=== PATIENT | male | born 1980 | race Caucasian/White ===

== ENCOUNTER → 2018-10-23 17:22 | Outpatient (CLI) | payer OTHER, SELFPAY | PROVIDERS: Visit Provider Nurse Practitioner Family | DX: L02.32 Furuncle of buttock (principal) | CPT/HCPCS: 87070; 87077; 87186; 87205 ==

== ENCOUNTER 2020-04-09 15:50 | Emergency (ER) | payer OTHER, SELFPAY ==
[2020-04-09 16:04] VITALS: BP 146/78; PULSE 74; RESP 17; TEMP 36.6; O2SAT 99; BMI 23.8
--- NOTE | 2020-04-09 16:07 | HMH.EDUTC ---
[facility] [place] Disposition Clinical Impression: Abscess of skin Qualifiers: Site of cutaneous abscess: extremity Site of cutaneous abscess of extremity: lower extremity Laterality: right Qualified Code(s): L02.415 - Cutaneous abscess of right lower limb Cellulitis Qualifiers: Site of cellulitis: extremity Site of cellulitis of extremity: lower extremity Laterality: right Qualified Code(s): L03.115 - Cellulitis of right lower limb Disposition: Home, Self-Care Condition on Discharge: Good Instructions: Cellulitis, Boil Additional Instructions: Keep the affected area clean and dry. Follow up with your regular doctor. Take the antibiotics as directed and apply the topical antibiotics as directed. Apply warm wet compresses to the affected area three or four times per day. GO TO THE ER FOR ANY WORSENING SYMPTOMS Prescriptions: Sulfamethoxazole/Trimethoprim [Bactrim DS tablet] 1 each PO BID 10 Days #20 tab Transmission Status: Received by [facility] Mupirocin [Bactroban 2% Ointment 22gm tube] 1 applicatio TP TID 7 Days #1 tube Transmission Status: Received by [facility] cephALEXin [Keflex 500mg Cap] 500 mg PO Q6H 10 Days #40 cap Transmission Status: Received by [facility] Referrals: Niko Jordan MD [Primary Care Provider] - Forms: Work/School Release Time of Disposition: 16:15 Medical Decision Making - Medical Records Medical records reviewed: No: I reviewed the patient's medical records. - Jerod Inquiry Pt receiving controlled substance: No Vital Signs: 04/09/20 16:04 04/09/20 16:18 Temperature 97.8 F 97.8 F Temperature Source Oral Pulse Rate 74 Pulse Rate [Right Brachial] 74 Respiratory Rate 17 17 Blood Pressure 146/78 H Blood Pressure [Right Arm] 146/78 H Blood Pressure Mean [Right Arm] 100 Blood Pressure Source [Right Arm] Automatic Cuff Blood Pressure Position [Right Arm] Sitting 02 Sat by Pulse Oximetry 99 Oxygen Delivery Method Room Air Orders (Tests/Meds): ORDERS Category Date Time Status Wound Culture and Gram Stain Stat Micro 04/09/20 16:10 Results [facility] [place] HPI - General Stated complaint: Spot on R leg Time Seen by Provider: 04/09/20 16:08 Mode of Arrival: Ambulatory Source of Information: Patient Limitations: No Limitations Description of Symptoms (Recalled from Triage Doc. by RN): PATIENT C/O POSSIBLE ABSCESS ON RIGHT THIGH X 1 WEEK HEENT Symptoms (Recalled from RN notes): No Resp Symptoms (Recalled from RN notes): No Skin Symptoms (Recalled from RN notes): Yes MS Symptoms (Recalled from RN notes): No Functional Status (Recalled from RN notes): WNL - History of Present Illness Provider Complaint: He reports that he has a swollen red area on the top of his right thigh. He denies any fever or chills. - Related Data Home Medications Medication Instructions Recorded Confirmed buprenorphine 8 mg-naloxone 2 mg 1 tab SUBLINGUAL QDAY 09/26/17 04/09/20 sublingual tablet Previous Rx's Medication Instructions Recorded Mupirocin [Bactroban 2% Ointment 1 applicatio TP TID 7 Days #1 tube 04/09/20 22gm tube] Sulfamethoxazole/Trimethoprim 1 each PO BID 10 Days #20 tab 04/09/20 [Bactrim DS tablet] cephALEXin [Keflex 500mg Cap] 500 mg PO Q6H 10 Days #40 cap 04/09/20 Allergies Allergy/AdvReac Type Severity Reaction Status Date / Time No Known Allergies Allergy Verified 11/27/19 10:41 - Worker's Comp Is this a Worker's Comp case?: No [facility] History - Hepatitis A Screen Drug use history?: No High risk sexual behaviors?: No History of sexually transmitted infection?: No Currently employed?: No Childcare worker?: No Do you have indoor plumbing?: Yes Do you have electricity?: Yes Attestation statement:: This patient has been screened for Hepatitis A risk factors. I have reviewed the patient's past medical history: Yes Comment: Hepatitis C Laterality Cases: Bilater
[2020-04-09 16:18] VITALS: BP 146/78; PULSE 74; RESP 17; TEMP 36.6; O2SAT 99
== END 2020-04-09 16:20 | disposition home or self-care (01) ==
PROVIDERS: Emergency Provider Nurse Practitioner Family; PCP Emergency Medicine
DX: L02.415 Cutaneous abscess of right lower limb (principal); F17.210 Nicotine dependence, cigarettes, uncomplicated
CPT/HCPCS: 87070; 87077; 87186; 87205; 99201

== ENCOUNTER 2020-07-20 13:26 | Emergency (ER) | payer OTHER, SELFPAY ==
[2020-07-20 13:45] VITALS: BP 122/76; PULSE 97; RESP 18; TEMP 36.6; O2SAT 98; BMI 23.7
--- NOTE | 2020-07-20 13:59 | HMH.EDUTC ---
[facility] [place] Impression: Viral syndrome, Exposure to COVID-19 virus Disposition: Home, Self-Care Condition on Discharge: Good Instructions: DI for Viral Syndrome, Preventing the Spread of Coronavirus Discharge Instructions Additional Instructions: Drink plenty of fluids. Take tylenol for pain or fever. Take the medications as directed. Follow up with your regular doctor. GO TO THE ER FOR ANY WORSENING SYMPTOMS Prescriptions: Ondansetron [Zofran 4mg ODT] 4 mg PO Q8HP PRN #12 tab.rapdis PRN Reason: Nausea Transmission Status: Received by [facility] Referrals: Niko Jordan MD [Primary Care Provider] - Forms: Work/School Release Time of Disposition: 14:01 Medical Decision Making - Medical Records Medical records reviewed: No: I reviewed the patient's medical records. - Jerod Inquiry Pt receiving controlled substance: No Vital Signs: 07/20/20 13:45 07/20/20 14:03 Temperature 97.8 F 97.8 F Temperature Source Oral Pulse Rate 97 H Pulse Rate [Right Brachial] 97 H Respiratory Rate 18 18 Blood Pressure 122/76 Blood Pressure [Right Arm] 122/76 Blood Pressure Mean [Right Arm] 91 Blood Pressure Source [Right Arm] Automatic Cuff Blood Pressure Position [Right Arm] Sitting 02 Sat by Pulse Oximetry 98 Oxygen Delivery Method Room Air [facility] [place] - General Stated complaint: covid exposure Time Seen by Provider: 07/20/20 13:59 Mode of Arrival: Ambulatory Source of Information: Patient Limitations: No Limitations Description of Symptoms (Recalled from Triage Doc. by RN): PATIENT REQUESTING COVID TEST; C/O NAUSEA, DIZZINESS, HEADACHE, AND DIARRHEA X 2 DAYS HEENT Symptoms (Recalled from RN notes): Yes Resp Symptoms (Recalled from RN notes): No Skin Symptoms (Recalled from RN notes): No MS Symptoms (Recalled from RN notes): No Functional Status (Recalled from RN notes): WNL - History of Present Illness Provider Complaint: He states that over the past 2 days he has had chilling, dizziness, diarrhea and feeling very bad. He denies documented fever. He thinks that he may have been exposed to covid at his work. - Related Data Previous Rx's Medication Instructions Recorded alprazolam 0.5 mg tablet 0.5 mg PO TID #90 tab 06/01/20 escitalopram oxalate 10 mg tablet 10 mg PO DAILY #90 tab 06/01/20 Ondansetron [Zofran 4mg ODT] 4 mg PO Q8HP PRN #12 tab.rapdis 07/20/20 Allergies Allergy/AdvReac Type Severity Reaction Status Date / Time No Known Allergies Allergy Verified 06/01/20 15:49 - Worker's Comp Is this a Worker's Comp case?: No [facility] History - Hepatitis A Screen Drug use history?: No High risk sexual behaviors?: No History of sexually transmitted infection?: No Currently employed?: No Childcare worker?: No Do you have indoor plumbing?: Yes Do you have electricity?: Yes Attestation statement:: This patient has been screened for Hepatitis A risk factors. I have reviewed the patient's past medical history: Yes Medical History: Reports:: Anxiety Comment: Hepatitis C Laterality Cases: Bilateral: Tonsillectomy Amputation: No Fractures: Yes - Social History Smoking Status: Current every day smoker Tobacco Type: cigarettes # Packs/Day (cigarettes): 1 Alcohol Intake: never Substance Use Type: former substance user, painkillers, opiates Occupational Status: other Housing: house Household Members: family - Psychiatric History Pschychiatric History:: Reports:: Anxiety Family Hx:: Non-contributory ROS Obtained: Yes All systems reviewed & no additional complaints - Constitutional Constitutional: Reports system reviewed and no additional complaints, except as docu - Eyes Eyes: Reports system reviewed and no additional complaints, except as docu - ENT Ears, Nose, Mouth, and Throat: Reports system reviewed and no additional complaints, except as docu - Cardiovascular Cardiovascular: Reports system reviewed and no addit
[2020-07-20 14:03] VITALS: BP 122/76; PULSE 97; RESP 18; TEMP 36.6; O2SAT 98
== END 2020-07-20 14:05 | disposition home or self-care (01) ==
PROVIDERS: Emergency Provider Nurse Practitioner Family; PCP Emergency Medicine
DX: Z20.828 Contact with and (suspected) exposure to other viral communicable diseases (principal); B34.9 Viral infection, unspecified
CPT/HCPCS: 99201; U0003

== ENCOUNTER → 2020-11-23 17:57 | Outpatient (CLI) | payer OTHER, SELFPAY ==
[2020-11-23 19:54] LABS: Amphetamine/Metha Screen,Urine Negative ng/ml (<1000)
[2020-11-23 19:55] LABS: Barbiturates Screen,Urine Negative ng/ml (<200); Benzodiazepines Screen,Urine Negative ng/ml (<200)
[2020-11-23 19:56] LABS: Cannabinoid Screen,Urine Positive ng/ml (<50)
[2020-11-23 19:57] LABS: Cocaine Screen,Urine Negative ng/ml (<300); Methadone Screen,Urine Negative ng/ml (<300)
[2020-11-23 19:58] LABS: Opiate Screen,Urine Negative ng/ml (<300); Phencyclidine Screen,Urine Negative ng/ml (<25)
== END ==
PROVIDERS: Visit Provider Emergency Medicine
DX: Z79.899 Other long term (current) drug therapy (principal)
CPT/HCPCS: 80305

== ENCOUNTER → 2021-03-30 08:00 | Outpatient (CLI) | payer OTHER, SELFPAY ==
[2021-03-31 09:12] LABS: Amphetamine/Metha Screen,Urine Negative ng/ml (<1000)
[2021-03-31 09:13] LABS: Barbiturates Screen,Urine Negative ng/ml (<200)
[2021-03-31 09:14] LABS: Cannabinoid Screen,Urine Negative ng/ml (<50)
[2021-03-31 09:17] LABS: Cocaine Screen,Urine Negative ng/ml (<300); Methadone Screen,Urine Negative ng/ml (<300)
[2021-03-31 09:18] LABS: Opiate Screen,Urine Negative ng/ml (<300)
[2021-03-31 09:20] LABS: Phencyclidine Screen,Urine Negative ng/ml (<25)
[2021-03-31 09:22] LABS: Benzodiazepines Screen,Urine Positive ng/ml (<200)
== END ==
PROVIDERS: Visit Provider Emergency Medicine
DX: Z79.899 Other long term (current) drug therapy (principal)
CPT/HCPCS: 80305

== ENCOUNTER → 2021-06-22 19:29 | Outpatient (CLI) | payer OTHER, SELFPAY ==
[2021-06-22 20:33] LABS: Amphetamine/Metha Screen,Urine Negative ng/ml (<1000); Barbiturates Screen,Urine Negative ng/ml (<200)
[2021-06-22 20:35] LABS: Benzodiazepines Screen,Urine Positive ng/ml (<200)
[2021-06-22 20:36] LABS: Cannabinoid Screen,Urine Negative ng/ml (<50); Cocaine Screen,Urine Negative ng/ml (<300)
[2021-06-22 20:37] LABS: Methadone Screen,Urine Negative ng/ml (<300)
[2021-06-22 20:38] LABS: Opiate Screen,Urine Negative ng/ml (<300); Phencyclidine Screen,Urine Negative ng/ml (<25)
== END ==
PROVIDERS: Visit Provider Emergency Medicine
DX: Z02.83 Encounter for blood-alcohol and blood-drug test (principal)
CPT/HCPCS: 80305

== ENCOUNTER 2021-06-27 15:37 | Emergency (ER) | payer OTHER, SELFPAY ==
[2021-06-27 15:49] VITALS: BMI 21.7
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
[2021-06-27 15:52] VITALS: BP 159/129; PULSE 114; RESP 18; TEMP 37; O2SAT 95; BMI 21.7
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
--- NOTE | 2021-06-27 17:41 | ECG_ITS ---
APPROVED REPORT Exam: Resting ECG HR:80 bpm ECG Measurements Heart Rate 80 AXES RI 178 P 74 QRSd 86 QRS 91 QT 360 T 69 QTc 415 Conclusion Normal sinus rhythm Rightward axis Borderline ECG Electronically signed by : Clint Cifuentes MD 06/28/2021 21:18:08
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
[2021-06-27 18:33] VITALS: BP 123/74; PULSE 78; RESP 18; TEMP 36.6; O2SAT 98
== END 2021-06-27 18:35 | disposition home or self-care (01) ==
PROVIDERS: Emergency Provider Student in an Organized Health Care Education/Training Program; PCP Emergency Medicine
DX: M25.511 Pain in right shoulder (principal); M54.6 Pain in thoracic spine; T07.XXXA Unspecified multiple injuries, initial encounter; W52.XXXA Crushed, pushed or stepped on by crowd or human stampede, initial encounter; Y93.02 Activity, running; Y92.89 Other specified places as the place of occurrence of the external cause; F17.210 Nicotine dependence, cigarettes, uncomplicated
CPT/HCPCS: 70140; 71045; 72070; 73030; 73120; 93005; 96372; 99283

== ENCOUNTER → 2021-09-28 14:03 | Outpatient (CLI) | payer OTHER, SELFPAY ==
[2021-09-28 15:35] LABS: Barbiturates Screen,Urine Negative ng/ml (<200)
[2021-09-28 15:36] LABS: Amphetamine/Metha Screen,Urine Negative ng/ml (<1000); Benzodiazepines Screen,Urine Positive ng/ml (<200)
[2021-09-28 15:37] LABS: Cannabinoid Screen,Urine Negative ng/ml (<50)
[2021-09-28 15:38] LABS: Cocaine Screen,Urine Negative ng/ml (<300); Methadone Screen,Urine Negative ng/ml (<300)
[2021-09-28 15:39] LABS: Opiate Screen,Urine Negative ng/ml (<300)
[2021-09-28 15:40] LABS: Phencyclidine Screen,Urine Negative ng/ml (<25)
== END ==
PROVIDERS: Visit Provider Emergency Medicine
DX: Z02.83 Encounter for blood-alcohol and blood-drug test (principal); Z79.899 Other long term (current) drug therapy
CPT/HCPCS: 80305

== ENCOUNTER → 2021-12-24 08:49 | Outpatient (CLI) | payer OTHER, SELFPAY ==
[2021-12-24 18:40] LABS: Amphetamine/Metha Screen,Urine Negative ng/ml (<1000); Barbiturates Screen,Urine Negative ng/ml (<200)
[2021-12-24 18:41] LABS: Benzodiazepines Screen,Urine Positive ng/ml (<200)
[2021-12-24 18:42] LABS: Cannabinoid Screen,Urine Negative ng/ml (<50); Cocaine Screen,Urine Negative ng/ml (<300)
[2021-12-24 18:43] LABS: Methadone Screen,Urine Negative ng/ml (<300)
[2021-12-24 18:44] LABS: Opiate Screen,Urine Negative ng/ml (<300); Phencyclidine Screen,Urine Negative ng/ml (<25)
== END ==
PROVIDERS: PCP Emergency Medicine; Visit Provider Emergency Medicine
DX: F41.9 Anxiety disorder, unspecified (principal)
CPT/HCPCS: 80305

== ENCOUNTER → 2022-03-21 15:12 | Outpatient (CLI) | payer OTHER, SELFPAY ==
[2022-03-21 14:57] LABS: Amphetamine/Metha Screen,Urine Negative ng/ml (<1000)
[2022-03-21 14:58] LABS: Barbiturates Screen,Urine Negative ng/ml (<200); Benzodiazepines Screen,Urine Positive ng/ml (<200)
[2022-03-21 14:59] LABS: Cannabinoid Screen,Urine Negative ng/ml (<50); Cocaine Screen,Urine Negative ng/ml (<300)
[2022-03-21 15:00] LABS: Methadone Screen,Urine Negative ng/ml (<300)
[2022-03-21 15:01] LABS: Opiate Screen,Urine Negative ng/ml (<300); Phencyclidine Screen,Urine Negative ng/ml (<25)
== END ==
PROVIDERS: Visit Provider Emergency Medicine
DX: Z79.899 Other long term (current) drug therapy (principal)
CPT/HCPCS: 80305

== ENCOUNTER → 2022-06-22 17:16 | Outpatient (CLI) | payer OTHER, SELFPAY ==
[2022-06-22 15:40] LABS: Amphetamine/Metha Screen,Urine Negative ng/ml (<1000)
[2022-06-22 15:42] LABS: Barbiturates Screen,Urine Negative ng/ml (<200)
[2022-06-22 15:43] LABS: Benzodiazepines Screen,Urine Positive ng/ml (<200)
[2022-06-22 15:44] LABS: Cannabinoid Screen,Urine Negative ng/ml (<50); Cocaine Screen,Urine Negative ng/ml (<300)
[2022-06-22 15:45] LABS: Methadone Screen,Urine Negative ng/ml (<300)
[2022-06-22 15:46] LABS: Opiate Screen,Urine Negative ng/ml (<300); Phencyclidine Screen,Urine Negative ng/ml (<25)
== END ==
PROVIDERS: PCP Emergency Medicine; Visit Provider Emergency Medicine
DX: Z79.899 Other long term (current) drug therapy (principal)
CPT/HCPCS: 80305

== ENCOUNTER → 2022-09-28 08:50 | Outpatient (CLI) | payer OTHER, SELFPAY ==
[2022-09-28 16:06] LABS: Alanine Aminotransferase 48 U/L (12-78); Albumin/Globulin Ratio 1.5 (1.1-1.8); Alkaline Phosphatase 127 U/L (38-126); Anion Gap 13.3 mEq/L (5-15); Aspartate Amino Transferase 42 U/L (17-59); Bilirubin,Total 0.4 mg/dl (0.2-1.3); Blood Urea Nitrogen 17 mg/dl (9-20); Calcium 9.5 mg/dl (8.4-10.2); Carbon Dioxide 28 mmol/L (22.0-30.0); Chloride 102 mmol/L (98-107); Chol/HDL Ratio 3.9 (1-3.5); Cholesterol 194 mg/dl (140-200); Estimated Glomerular Filt Rate 149 ml/min (>60); GFR (African American) 181 ML/MIN (>60); Globulin 3.3 g/dL (1.3-3.2); Glucose 111 mg/dl (74-100); HDL Cholesterol 50 mg/dl (40-60); Potassium 4.3 mmoL/L (3.5-5.1); Sodium 139 mmol/L (136-145); Total Protein,Serum 8.3 g/dl (6.3-8.2); Triglycerides 78 mg/dl (30-150); VLDL Cholesterol 16 mg/dL (0-40)
[2022-09-28 16:18] LABS: Direct LDL Cholesterol 113.77 mg/dL (100-129)
[2022-09-28 16:26] LABS: Barbiturates Screen,Urine Negative ng/ml (<200)
[2022-09-28 16:26] LABS: Free T4 (Free Thyroxine) 1.16 ng/dl (0.78-2.19)
[2022-09-28 16:27] LABS: Benzodiazepines Screen,Urine Positive ng/ml (<200)
[2022-09-28 16:28] LABS: Cannabinoid Screen,Urine Negative ng/ml (<50)
[2022-09-28 16:30] LABS: Cocaine Screen,Urine Negative ng/ml (<300)
[2022-09-28 16:31] LABS: Methadone Screen,Urine Negative ng/ml (<300)
[2022-09-28 16:32] LABS: Phencyclidine Screen,Urine Negative ng/ml (<25)
[2022-09-28 16:41] LABS: Thyroid Stimulating Hormone 2.07 uIU/mL (0.465-4.68)
[2022-09-28 16:44] LABS: Amphetamine/Metha Screen,Urine Negative ng/ml (<1000)
[2022-09-28 16:45] LABS: Opiate Screen,Urine Negative ng/ml (<300)
== END ==
PROVIDERS: PCP Emergency Medicine; Visit Provider Emergency Medicine
DX: Z79.899 Other long term (current) drug therapy (principal); B19.20 Unspecified viral hepatitis C without hepatic coma; E55.9 Vitamin D deficiency, unspecified; E66.3 Overweight
CPT/HCPCS: 80053; 80061; 80305; 82306; 84439; 84443

== ENCOUNTER 2023-03-13 17:37 | Emergency (ER) | payer SELFPAY ==
[2023-03-13 17:38] VITALS: BP 151/81; PULSE 85; RESP 16; TEMP 36.9; O2SAT 99; BMI 23.1
--- NOTE | 2023-03-13 17:54 | HMH.EDGENADL ---
Discharge Plan Disposition Patient Disposition: Home, Self-Care Prescriptions Prescriptions: New promethazine 25 mg tablet 25 mg PO TID PRN (Reason: nausea and vomiting) Qty: 30 0RF No Action alprazolam 0.5 mg tablet 0.5 mg PO QID Qty: 120 2RF escitalopram oxalate [Lexapro] 10 mg tablet 10 mg PO DAILY Qty: 90 0RF alprazolam [Xanax] 1 mg tablet 1 mg PO QID Qty: 20 0RF trazodone 50 mg tablet 50 mg PO DAILY Qty: 30 0RF Referrals Follow up/Referrals: Niko Jordan MD [Primary Care Provider] - See instructions Activity Restrictions/Add. Instructions Additional Instructions/Restrictions: Return for worsening abdominal pain vomiting or any other concerns within the next 8 hours Clinical Impressions Clinical Impression: Acute opioid withdrawal Instructions Patient Instructions: DI for Diarrhea and Traveler's Diarrhea -- Adult, DI for Diarrhea and Traveler's Diarrhea -- Child, DI for Nausea -- Adult, DI for Nausea -- Child Discharge ED Provider: Cristian Curry General Adult HPI General Chief complaint: Nausea/Vomiting/Diarrhea Stated complaint: poss withdraw Time Seen by Provider: 03/13/23 17:40 Mode of Arrival: Wheelchair Limitations: No Limitations Description of Symptoms (Recalled from ER Triage Doc. by RN): PT BROUGHT IN BY S.O. PT REPORTS HE IS GOING THROUGH WITHDRAWL HAS NOT USED HEROIN IN ABOUT 4-5 DAYS. 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 He says he last used about 4 to 5 days ago. He has muscle aches vomiting and diarrhea. He went home and his brought him in because he was feeling so bad. Denies chest pain difficulty breathing. He has not had any seizures. Related Data Previous Rx's Medication Instructions Recorded escitalopram oxalate 10 mg tablet 10 mg PO DAILY #90 tabs 06/22/22 (Lexapro) alprazolam 0.5 mg tablet 0.5 mg PO QID #120 tabs 01/06/23 alprazolam 1 mg tablet (Xanax) 1 mg PO QID #20 tabs 03/03/23 trazodone 50 mg tablet 50 mg PO DAILY #30 tabs 03/03/23 promethazine 25 mg tablet 25 mg PO TID PRN nausea and 03/13/23 vomiting #30 tabs Allergies Allergy/AdvReac Type Severity Reaction Status Date / Time No Known Allergies Allergy Verified 03/03/23 15:37 [facility] Disclaimer: The information contained in this section may have been updated after the patient was seen, as this information can be updated by other users. Social History Smoking Status: Current every day smoker tobacco type: cigarettes packs per day: 1 alcohol intake: never substance use type: former substance user, opiates and painkillers current occupational status: other Travel in the last 8 weeks: None household members: family housing: house ROS Obtained: Yes All systems reviewed & no additional complaints except as documented Constitutional Constitutional: Denies frequent falls Eyes Eyes: Denies diplopia ENT Ears, Nose, Mouth, and Throat: Denies dizziness Cardiovascular Cardiovascular: Denies diaphoresis and Denies dyspnea Respiratory Respiratory: Denies dyspnea and Denies wheezing Gastrointestinal Gastrointestingal: Denies coffee ground emesis Genitourinary Male Genitourinary: Denies flank pain Musculoskeletal Musculoskeletal: Denies arthralgias Integumentary/Breasts Skin/Breast: Denies rash Neurologic Neurologic: Denies dizziness and Denies frequent falls Endocrine Endocrine: Denies flushing Hematologic/Lymphatic Henatologic/Lymphatic: Denies easy bruising Allergic/Immunologic Allergic/Immunologic: Denies wheezing Physical Exam General General appearance: alert and in no apparent distress Eye Eye exam: Present PERRL and EOMI ENT ENT exam: Present normal exam and normal oropharynx Neck Neck exam: Present normal inspection Chest Chest inspection: Present symmetric chest wall rise Re
[2023-03-13 18:08] VITALS: PULSE 76; O2SAT 97
[2023-03-13 18:08] LABS: Basophils % 0.3 % (0.1-2.0); Eosinophils # 0.1 K/mm3 (0.0-0.4); Eosinophils % 1.1 % (0.1-12.0); Hematocrit 45.1 % (42.0-52.0); Hemoglobin 14.7 g/dL (14.1-18.0); Lymphocytes # 1.6 K/mm3 (0.7-4.5); Lymphocytes % 12.5 % (10-50); Mean Corpuscular HGB Conc 32.7 g/dL (31.8-35.4); Mean Corpuscular Hemoglobin 29.5 pg (27.0-31.2); Mean Corpuscular Volume 90.2 fl (80-94); Mean Platelet Volume 8.7 fl (7.4-10.4); Monocytes # 0.6 K/mm3 (0.1-1.0); Monocytes % 4.5 % (1.7-9.3); Neutrophils # 10.2 K/mm3 (1.8-7.8); Neutrophils % 81.7 % (37.0-80.0); Platelet Count 427 K/mm3 (142-424); Red Cell Distribution Width 14.6 % (11.5-17.5); White Blood Count 12.5 K/mm3 (4.8-10.8)
[2023-03-13 18:56] LABS: Chloride 98 mmol/L (98-107); Sodium 140 mmol/L (136-145)
[2023-03-13 18:59] LABS: Alanine Aminotransferase 37 U/L (12-78); Albumin Level 4.8 g/dl (3.5-5.0); Alkaline Phosphatase 133 U/L (38-126); Aspartate Amino Transferase 44 U/L (17-59); Bilirubin,Total 0.6 mg/dl (0.2-1.3); Blood Urea Nitrogen 14 mg/dl (9-20); Calcium 9.8 mg/dl (8.4-10.2); Carbon Dioxide 31 mmol/L (22.0-30.0); Creatinine Clearance Estimated 189 mL/min (50-200); Estimated Glomerular Filt Rate 149 ml/min (>60); GFR (African American) 181 ML/MIN (>60); Globulin 4.7 g/dL (1.3-3.2); Glucose 118 mg/dl (74-100); Lipase 77 U/L (23-300); Magnesium 1.9 mg/dl (1.6-2.3); Total Protein,Serum 9.5 g/dl (6.3-8.2)
[2023-03-13 19:00] VITALS: PULSE 81; O2SAT 97
[2023-03-13 19:12] LABS: Troponin I < 0.01 ng/ml (0.00-0.034)
--- NOTE | 2023-03-13 19:39 | PC.NURSE ---
Pt repositioned in bed for comfort. No other needs voiced at this time.
[2023-03-13 20:29] VITALS: BP 147/72; PULSE 72; RESP 16; TEMP 36.9; O2SAT 97
== END 2023-03-13 20:31 | disposition home or self-care (01) ==
PROVIDERS: Emergency Provider Emergency Medicine; PCP Emergency Medicine
DX: F11.23 Opioid dependence with withdrawal (principal); R11.2 Nausea with vomiting, unspecified; R19.7 Diarrhea, unspecified; F17.210 Nicotine dependence, cigarettes, uncomplicated
CPT/HCPCS: 80053; 83690; 83735; 84484; 85025; 96361; 96374; 96375; 99284; 99285; J2405; J3475

== ENCOUNTER 2023-03-18 14:59 | Observation (INO) | payer SELFPAY ==
[2023-03-18] VITALS (9 sets, daily range): BP systolic 123–141; BP diastolic 68–112; PULSE 73–105; RESP 15–24; TEMP 36.6–37.1; O2SAT 96–100; BMI 23.1; BMI 22.4
--- NOTE | 2023-03-18 15:11 | HMH.EDGENADL ---
Discharge Plan Disposition Patient Disposition: Home, Self-Care Chief Complaint: Altered Mental Status Prescriptions Prescriptions: No Action alprazolam 0.5 mg tablet 0.5 mg PO QID Qty: 120 2RF escitalopram oxalate [Lexapro] 10 mg tablet 10 mg PO DAILY Qty: 90 0RF alprazolam [Xanax] 1 mg tablet 1 mg PO QID Qty: 20 0RF trazodone 50 mg tablet 50 mg PO DAILY Qty: 30 0RF ketorolac 10 mg tablet 10 mg PO Q6H 3 Days Qty: 12 0RF Rx Instructions: patient had toradol shot in ER on 03/13/23 hydroxyzine pamoate [Vistaril] 50 mg capsule 50 mg PO Q8H 3 Days Qty: 9 0RF promethazine 25 mg tablet 25 mg PO TID PRN (Reason: nausea and vomiting) Qty: 30 0RF Referrals Follow up/Referrals: Niko Jordan MD [Primary Care Provider] - See instructions Clinical Impressions Clinical Impression: Benzodiazepine withdrawal, Hypophosphatemia, Hypokalemia Instructions Patient Instructions: DI for Altered Mental Status Discharge ED Provider: Carlotta Dorsey General Adult HPI General Chief complaint: Altered Mental Status Stated complaint: pain Time Seen by Provider: 03/18/23 15:01 History of Present Illness HPI narrative: Patient is a 42-year-old male presenting today with withdrawal symptoms. He has a history of opioid abuse and has used heroin daily for a long time but most recently stopped 9 days ago. His sister and his girlfriend state that he has not been by himself at any point during this last 9 days. He had some nausea vomiting a few days ago had decreased intake of his Xanax which he takes daily as well. Of the last 24 hours he has had altered mental status with some tremors and decreased level of alertness. Denies any alcohol use or any other drug use. No fevers or chills no injuries no other ingestions. Related Data Previous Rx's Medication Instructions Recorded escitalopram oxalate 10 mg tablet 10 mg PO DAILY #90 tabs 06/22/22 (Lexapro) alprazolam 0.5 mg tablet 0.5 mg PO QID #120 tabs 01/06/23 alprazolam 1 mg tablet (Xanax) 1 mg PO QID #20 tabs 03/03/23 trazodone 50 mg tablet 50 mg PO DAILY #30 tabs 03/03/23 promethazine 25 mg tablet 25 mg PO TID PRN nausea and 03/13/23 vomiting #30 tabs ketorolac 10 mg tablet 10 mg PO Q6H 3 days #12 tabs 03/14/23 hydroxyzine pamoate 50 mg capsule 50 mg PO Q8H 3 days #9 caps 03/16/23 (Vistaril) Allergies Allergy/AdvReac Type Severity Reaction Status Date / Time No Known Allergies Allergy Verified 03/03/23 15:37 [facility] Disclaimer: The information contained in this section may have been updated after the patient was seen, as this information can be updated by other users. Social History Smoking Status: Current every day smoker tobacco type: cigarettes packs per day: 1 alcohol intake: never substance use type: former substance user, opiates and painkillers current occupational status: other Travel in the last 8 weeks: None household members: family housing: house ROS Obtained: Yes All systems reviewed & no additional complaints except as documented Physical Exam General General appearance: alert and other (Answer questions appropriately with decreased level of alertness) Respiratory Respiratory exam: Present normal lung sounds bilaterally Cardiovascular Cardiovascular exam: Present regular rate; Absent tachycardia Neurological Exam Neurological exam: Present alert and oriented X3 Medical Decision Making Jerod Inquiry Pt receiving controlled substance: No Vital Signs: 03/18/23 15:00 Temperature 97.8 F Temperature Source Oral Pulse Rate [Right] 105 H Respiratory Rate 24 Blood Pressure [Right Arm] 141/112 H Blood Pressure Mean [Right Arm] 121 Blood Pressure Source [Right Arm] Automatic Cuff Blood Pressure Position [Right Arm] Sitting 02 Sat by Pulse Oximetry 100 Oxygen Delivery Method Room Air Lab Data Lab results reviewed: Y
[2023-03-18 15:29] LABS: VBG Base Excess 3.3 mmol/L (-2.4-2.3); VBG HCO3 24.4 mmol/L (23-30); VBG Oxygen Saturation 65.1 % (50-70); VBG PO2 26.5 mmol/L (28-40); VBG Total CO2 25.1 mmol/L (23-27)
[2023-03-18 15:29] LABS: Basophils # 0.1 K/mm3 (0-0.2); Basophils % 0.5 % (0.1-2.0); Eosinophils # 0.4 K/mm3 (0.0-0.4); Eosinophils % 2.1 % (0.1-12.0); Hematocrit 44.6 % (42.0-52.0); Hemoglobin 14.9 g/dL (14.1-18.0); Lymphocytes % 21.9 % (10-50); Mean Corpuscular HGB Conc 33.4 g/dL (31.8-35.4); Mean Corpuscular Hemoglobin 29.3 pg (27.0-31.2); Mean Corpuscular Volume 87.8 fl (80-94); Mean Platelet Volume 8.3 fl (7.4-10.4); Monocytes # 0.8 K/mm3 (0.1-1.0); Monocytes % 4.5 % (1.7-9.3); Neutrophils % 70.9 % (37.0-80.0); Platelet Count 436 K/mm3 (142-424); Red Blood Count 5.08 M/mm3 (4.60-6.20); Red Cell Distribution Width 14.5 % (11.5-17.5); White Blood Count 18.4 K/mm3 (4.8-10.8)
[2023-03-18 15:33] LABS: MANUAL DIFFERENTIAL MANUAL DIFFERENTIAL (MANUAL DIFF)
[2023-03-18 15:33] LABS: VBG PCO2 23.8 mmol/L (35-51); VBG PH 7.63 mmol/L (7.31-7.41)
[2023-03-18 15:36] LABS: Alanine Aminotransferase 54 U/L (12-78); Albumin Level 4.4 g/dl (3.5-5.0); Albumin/Globulin Ratio 1.3 (1.1-1.8); Alkaline Phosphatase 116 U/L (38-126); Anion Gap 15.6 mEq/L (5-15); Aspartate Amino Transferase 38 U/L (17-59); Bilirubin,Total 0.6 mg/dl (0.2-1.3); Blood Urea Nitrogen 20 mg/dl (9-20); Calcium 9.6 mg/dl (8.4-10.2); Carbon Dioxide 26 mmol/L (22.0-30.0); Chloride 98 mmol/L (98-107); Estimated Glomerular Filt Rate 107 ml/min (>60); Ethyl Alcohol < 10 mg/dl (0-10); GFR (African American) 130 ML/MIN (>60); Globulin 3.3 g/dL (1.3-3.2); Glucose 176 mg/dl (74-100); Sodium 137 mmol/L (136-145); Total Protein,Serum 7.7 g/dl (6.3-8.2)
--- NOTE | 2023-03-18 15:36 | ECG_ITS ---
APPROVED REPORT Exam: Resting ECG HR:83 bpm ECG Measurements Heart Rate 83 AXES KS 172 P 65 QRSd 108 QRS 80 QT 501 T 72 QTc 540 Conclusion SINUS RHYTHM Left atrial abnormality O/w Normal ECG UNCONFIRMED REPORT Electronically signed by : Clint Cifuentes MD 03/20/2023 07:17:43
[2023-03-18 15:40] LABS: Phosphorous 0.9 mg/dl (2.5-4.5); Potassium 2.6 mmoL/L (3.5-5.1)
--- NOTE | 2023-03-18 15:42 | PC.NURSE ---
notified of critical labs from [facility] from lab; Potassium 2.6 and Phosphorus 0.9
--- NOTE | 2023-03-18 15:43 | PC.NURSE ---
[facility] called for a request of Phos IV replacement per Dr. Jim Dorsey
--- NOTE | 2023-03-18 15:53 | PC.NURSE ---
KLAUDIA on phone with Hospitalist to admit
[2023-03-18 15:57] LABS: Lymphocytes % 24 % (10-50); Monocytes % 7 % (2-9); Neutrophils % 68 % (42-76); Platelet Estimate Normal; RBC Morphology Normal; Total Cells Counted 100
--- NOTE | 2023-03-18 15:58 | PC.NURSE ---
COVID swab obtained and sent to lab
--- NOTE | 2023-03-18 16:01 | PC.NURSE ---
Spoke with Giovani, Pharmacy. Per Giovani, Potassium Phosphate will be available in approx. 1hr. Dr. Dorsey notified.
[2023-03-18 16:29] LABS: Coronavirus 19, PCR Not Detected (NotDetected); Influenza A, PCR Not Detected (NotDetected); Influenza B, PCR Not Detected (NotDetected)
--- NOTE | 2023-03-18 16:29 | PC.NURSE ---
patient resting comfortable at this time, family at bedside
--- NOTE | 2023-03-18 16:53 | PC.NURSE ---
HElped pt move to a more comfortable position in the bed
--- NOTE | 2023-03-18 16:57 | PC.NURSE ---
Called and spoke with Farhana Pharmacist from [facility] to verify that Potassium Phosphate can be ran with Potassium Chloride.
--- NOTE | 2023-03-18 17:07 | PC.NURSE ---
Went in to give oral Potassium patient was not alert and able to stay awake. MD notified. Returned Potassium 60mEq PO
--- NOTE | 2023-03-18 17:18 | PC.NURSE ---
Called and gave report to Marcus THOMPSON
--- NOTE | 2023-03-18 17:23 | PC.NURSE ---
arrived to floor by stretcher from ED
--- NOTE | 2023-03-18 18:18 | EXP.HP ---
History of Present Illness *Admission Date: 03/18/23 *Reason for visit:: Altered mental status x2 days *History of present illness: 42-year-old male with history of heroin abuse, benzodiazepine dependent for anxiety (through his primary care) who was brought to the ER by his piotr and sister for altered mental status going on for few days. Most of the history was obtained from ER documentation review and discussion with ER physician who evaluated the patient and review information obtained from patient due to his altered sensorium. Per ER physician patient last use of heroin was about 9 days ago. Since then he has been having some chronic pain symptoms of his lower back and the last few days he did not take his prescription Xanax that he takes for anxiety 0.5 mg 4 times a day. Patient now has altered mental status and was behaving unusual and was becoming more lethargic according to his piotr and sister. This was the reason why he was brought to the ER In the ER patient was found to be in a confusional state, significantly lethargic. His vitals were stable. His labs showed significantly low potassium and phosphorus. He appeared dehydrated. He was given IV fluid resuscitation followed by IV potassium replacement and phosphorus replacement. He was also given lorazepam for possible benzodiazepine withdrawal. His altered sensorium improved and currently is little bit drowsy but oriented and answering questions. He did say that he last used heroin 9 days ago and have not taken his benzodiazepine prescription medication in the last 2 days. He said he is feeling very tired and has some nausea symptoms but improving. No fevers, seizures, shortness of breath, chest pain, diarrhea. He is tolerating his diet at bedside. [facility] Disclaimer: The information contained in this section may have been updated after the patient was seen, as this information can be updated by other users. Medical History (Updated 03/18/23 @ 18:30 by Avni Carvalho MD) No significant past medical history Surgical History History of tonsillectomy Family History Father Colon cancer Social History Smoking Status: Current every day smoker tobacco type: cigarettes packs per day: 1 alcohol intake: never substance use type: former substance user, opiates and painkillers current occupational status: employed and other Travel in the last 8 weeks: None household members: family housing: house Review of Systems Review of Systems Review of systems:: pertinent systems reviewed and negative unless documented below Meds Home Medications and Allergies Home Medications Medication Instructions Recorded Confirmed Type promethazine 25 mg tablet 25 mg PO TID PRN nausea and 03/13/23 03/18/23 Rx vomiting #30 tabs alprazolam 0.5 mg tablet 0.5 mg PO QID withdrawal 03/18/23 03/18/23 History hydroxyzine pamoate 50 mg capsule 50 mg PO Q8H withdrawal 03/18/23 03/18/23 History (Vistaril) ketorolac 10 mg tablet 10 mg PO Q6H WITHDRAWAL 03/18/23 03/18/23 History trazodone 50 mg tablet 50 mg PO DAILY WITHDRAWAL SYMPTOMS 03/18/23 03/18/23 History New Prescriptions to Start Prescriptions: Allergies Allergy/AdvReac Type Severity Reaction Status Date / Time No Known Allergies Allergy Verified 03/18/23 17:31 Exam Data for Last 24 hours Vital signs and Labs for Last 24 Hours: Temp Pulse Resp BP Pulse Ox O2 Del Method 98.7 F 78 18 124/80 97 Room Air 03/18/23 17:29 03/18/23 17:29 03/18/23 17:29 03/18/23 17:29 03/18/23 17:29 03/18/23 17:43 Laboratory Results - last 24 hr 03/18/23 15:16: WBC 18.4 H, RBC 5.08, Hgb 14.9, Hct 44.6, MCV 87.8, MCH 29.3, MCHC 33.4, RDW 14.5, Plt Count 436 H, MPV 8.3, Neut % (Auto) 70.9, Lymph % (Auto) 21.9, Darke % (Auto) 4.5, Eos % (Auto) 2.1,
[2023-03-18 21:20] LABS: Barbiturates Screen,Urine Negative ng/ml (<200); Benzodiazepines Screen,Urine Positive ng/ml (<200)
[2023-03-18 21:21] LABS: Amphetamine/Metha Screen,Urine Negative ng/ml (<1000)
[2023-03-18 21:22] LABS: Cannabinoid Screen,Urine Positive ng/ml (<50); Cocaine Screen,Urine Negative ng/ml (<300)
[2023-03-18 21:23] LABS: Methadone Screen,Urine Negative ng/ml (<300)
[2023-03-18 21:24] LABS: Opiate Screen,Urine Positive ng/ml (<300); Phencyclidine Screen,Urine Negative ng/ml (<25)
[2023-03-18 23:23] LABS: Anion Gap 9.7 mEq/L (5-15); Blood Urea Nitrogen 22 mg/dl (9-20); Carbon Dioxide 27 mmol/L (22.0-30.0); Chloride 107 mmol/L (98-107); Creatinine Clearance Estimated 157 mL/min (50-200); Estimated Glomerular Filt Rate 125 ml/min (>60); GFR (African American) 151 ML/MIN (>60); Glucose 107 mg/dl (74-100); Potassium 4.7 mmoL/L (3.5-5.1); Sodium 139 mmol/L (136-145)
[2023-03-19] VITALS: BP 124/77; PULSE 71; RESP 18; TEMP 37; O2SAT 90
[2023-03-19 04:00] VITALS: BP 130/73; PULSE 74; RESP 18; TEMP 36.7; O2SAT 97; BMI 23.1
--- NOTE | 2023-03-19 05:58 | PC.NURSE ---
@0520 PT STATED HE WANTED TO LEAVE BECAUSE HE COULDN'T SLEEP AND HIS BACK HURT; THIS RN ASKED THE PT IF HE WANTED TO WAIT UNTIL THE DOCTOR'S ROUNDED TODAY SO HE CAN SPEAK WITH THEM AND HE WAS OK WITH THAT IDEA FOR NOW; THIS RN ALSO ASKED THE PT IF HE WOULD LIKE SOME PAIN AND ANXIETY MEDICATION AND STATED YES; SEE MAR. PT ASKED WITH [facility] ROUND AND SEEMED TO AGREE TO STAY AT LEAST UNTIL THEN.
[2023-03-19 07:37] VITALS: BP 159/71; PULSE 90; RESP 18; TEMP 36.7; O2SAT 98
--- NOTE | 2023-03-19 09:11 | HMH.PHAINT1 ---
Pharmacy Intervention Comments: MEDICATION RECONCILIATION COMPLETE USING LIST FROM MOST RECENT MD OFFICE VISIT (03/03/23), RECENT ED VISIT, AND EXTERNAL PHARMACY FILL HISTORY.
--- NOTE | 2023-03-19 09:53 | EXP.DC.SUM ---
General Admission date:: 03/18/23 Discharge date: 03/19/23 HPI HPI HPI: 42-year-old male with history of heroin abuse, benzodiazepine dependent for anxiety (through his primary care) who was brought to the ER by his firodrigo and sister for altered mental status going on for few days. Most of the history was obtained from ER documentation review and discussion with ER physician who evaluated the patient and review information obtained from patient due to his altered sensorium. He was admitted for concern of benzodiazepine withdrawal, severe dehydration, electrolyte imbalance including hypophosphatemia and hypokalemia. Hospital Course Hospital Course Hospital Course: 42-year-old with history of anxiety and depression on chronic benzodiazepine prescription at home, history of heroin use, admitted for benzodiazepine withdrawal and encephalopathy secondary to benzodiazepine withdrawal, electrolyte imbalance and dehydration. Overnight his mentation improved after restarting benzodiazepine with IV lorazepam and transitioning to p.o. Valium. He has prescriptions of Xanax at home which he will continue from his primary. His encephalopathy resolved. He is mentating at baseline. His electrolytes including potassium was corrected. He will be given prescription for phosphorus replacement with Neutra-Phos tablets. He was discharged in stable condition to follow-up with primary care. Exam Data for Last 24 hours Vital signs and Labs for Last 24 Hours: Temp Pulse Resp BP Pulse Ox O2 Del Method 98.1 F 90 18 159/71 H 98 Room Air 03/19/23 07:37 03/19/23 07:37 03/19/23 07:37 03/19/23 07:37 03/19/23 07:37 03/19/23 09:00 Laboratory Results - last 24 hr 03/18/23 15:16: WBC 18.4 H, RBC 5.08, Hgb 14.9, Hct 44.6, MCV 87.8, MCH 29.3, MCHC 33.4, RDW 14.5, Plt Count 436 H, MPV 8.3, Neut % (Auto) 70.9, Lymph % (Auto) 21.9, Cannon % (Auto) 4.5, Eos % (Auto) 2.1, Baso % (Auto) 0.5, Neut # (Auto) 13.0 H, Lymph # (Auto) 4.0, Cannon # (Auto) 0.8, Eos # (Auto) 0.4, Baso # (Auto) 0.1, Total Counted 100, Neutrophils % (Manual) 68, Lymphocytes % (Manual) 24, Monocytes % (Manual) 7, Basophils % (Manual) 1.0, Platelet Estimate Normal, RBC Morphology Normal, Sodium 137, Potassium 2.6 L*, Chloride 98, Carbon Dioxide 26, Anion Gap 15.6 H, BUN 20, Creatinine 0.80, Estimated GFR 107, Est GFR ( Amer) 130, Glucose 176 H, Calcium 9.6, Phosphorus 0.9 L, Magnesium 2.0, Total Bilirubin 0.6, AST 38, ALT 54, Alkaline Phosphatase 116, Total Protein 7.7, Albumin 4.4, Globulin 3.3 H, Albumin/Globulin Ratio 1.3, Plasma/Serum Alcohol < 10 03/18/23 15:27: VBG pH 7.63 H, VBG pCO2 23.8 L, VBG pO2 26.5 L, VBG HCO3 24.4, VBG Total CO2 25.1, VBG O2 Saturation 65.1, VBG Base Excess 3.3 H 03/18/23 16:00: SARS-CoV-2 (PCR) Not detected, Influenza A Untype (PCR) Not detected, Influenza Type B (PCR) Not detected 03/18/23 21:01: Urine Opiates Screen Positive H, Urine Methadone Screen Negative, Ur Barbituates Screen Negative, Ur Phencyclidine Scrn Negative, Ur Amphetamines Screen Negative, U Benzodiazepines Scrn Positive H, Urine Cocaine Screen Negative, U Marijuana (THC) Screen Positive H 03/18/23 23:05: Sodium 139, Potassium 4.7 D, Chloride 107, Carbon Dioxide 27, Anion Gap 9.7, BUN 22 H, Creatinine 0.70, Estimated Creat Clear 157, Estimated GFR 125, Est GFR ( Amer) 151, Glucose 107 H D, Calcium 9.0 I & O for Last 24 hours: Intake & Output 03/16/23 03/17/23 03/18/23 03/19/23 23:59 23:59 23:59 23:59 Intake Total 360 / 360 720 / 720 Output Total 250 / 250 0 / 0 Balance 110 / 110 720 / 720 Weight 79.107 kg 81.647 kg Constitutional Constitutional: no acute distress, average body habitus and cooperative *Routine HEENT Exam Head: Present normocephalic and atraumatic Eye: Present EOMI and PERRL *Routine Respiratory Exam Respiratory: Present CTA bilaterally, normal respiratory effort, able to speak in complete sentences and symmetric chest movement *Routine Cardiovascular Ex
--- NOTE | 2023-03-19 10:34 | PC.NURSE ---
pt preferred pharmacy closed today. pt [facility]
--- NOTE | 2023-03-19 10:47 | HMH.PHAINT1 ---
Pharmacy Intervention Comments: DISCHARGE MEDICATION COUNSELING PROVIDED. DISCUSSED PHOSPHA-250 (DAILY, TAKE WITH FOOD AND FULL GLASS OF WATER, UPSET STOMACH, MUSCLE PAIN/CRAMPS, DIZZINESS POSSIBLE. PATIENT VERBALIZED NO QUESTIONS AT THIS TIME.
--- NOTE | 2023-03-20 15:16 | CARE MANAGER ---
Contacted patient related to hospital discharge. He states he picked up his medication and will make appointment with Dr. Jordan at his convenience. Denies questions or concerns. JAY Rodney
== END 2023-03-19 10:47 | disposition home or self-care (01) ==
LOC: ER 16:00 → 2ND 16:17
PROVIDERS: Admitting Provider Internal Medicine; Emergency Provider Student in an Organized Health Care Education/Training Program; PCP Emergency Medicine; Visit Provider Internal Medicine
DX: F13.930 Sedative, hypnotic or anxiolytic use, unspecified with withdrawal, uncomplicated (principal); F17.210 Nicotine dependence, cigarettes, uncomplicated; G93.41 Metabolic encephalopathy; E87.6 Hypokalemia; E86.0 Dehydration; E83.39 Other disorders of phosphorus metabolism; F11.221 Opioid dependence with intoxication delirium
CPT/HCPCS: 36415; 80048; 80053; 80305; 82803; 83735; 84100; 85007; 85025; 87636; 93005; 99291; G0378; J2405

== ENCOUNTER → 2023-05-16 10:06 | Outpatient (CLI) | payer OTHER, SELFPAY ==
[2023-05-16 11:30] LABS: Basophils % 0.4 % (0.1-2.0); Eosinophils # 0.1 K/mm3 (0.0-0.4); Eosinophils % 1.7 % (0.1-12.0); Hematocrit 50.4 % (42.0-52.0); Lymphocytes # 1.9 K/mm3 (0.7-4.5); Mean Corpuscular HGB Conc 31.8 g/dL (31.8-35.4); Mean Corpuscular Hemoglobin 30.2 pg (27.0-31.2); Mean Corpuscular Volume 94.9 fl (80-94); Mean Platelet Volume 8.9 fl (7.4-10.4); Monocytes # 0.5 K/mm3 (0.1-1.0); Monocytes % 7.2 % (1.7-9.3); Neutrophils # 4.5 K/mm3 (1.8-7.8); Neutrophils % 63.6 % (37.0-80.0); Platelet Count 254 K/mm3 (142-424); Red Blood Count 5.31 M/mm3 (4.60-6.20); Red Cell Distribution Width 15.4 % (11.5-17.5); White Blood Count 7.1 K/mm3 (4.8-10.8)
[2023-05-16 12:22] LABS: Alanine Aminotransferase 41 U/L (12-78); Albumin Level 4.4 g/dl (3.5-5.0); Albumin/Globulin Ratio 1.3 (1.1-1.8); Alkaline Phosphatase 112 U/L (38-126); Anion Gap 10.9 mEq/L (5-15); Aspartate Amino Transferase 32 U/L (17-59); Bilirubin,Total 0.2 mg/dl (0.2-1.3); Blood Urea Nitrogen 14 mg/dl (9-20); Carbon Dioxide 31 mmol/L (22.0-30.0); Chloride 102 mmol/L (98-107); Estimated Glomerular Filt Rate 148 ml/min (>60); GFR (African American) 180 ML/MIN (>60); Globulin 3.3 g/dL (1.3-3.2); Glucose 103 mg/dl (74-100); Potassium 4.9 mmoL/L (3.5-5.1); Sodium 139 mmol/L (136-145); Total Protein,Serum 7.7 g/dl (6.3-8.2)
[2023-05-17 09:55] LABS: HIV Screen 4th Generation wRfx Non Reactive (Non Reactive); Hep B Surface Ab, Qual Non Reactive (.); Hepatitis B Core Antibody, IgM Positive (Negative)
[2023-05-17 12:12] LABS: Rapid Plasma Reagin Ab Titer Non Reactive titer (NonRea<1:1)
[2023-05-19 00:07] LABS: QuantiFERON-TB Gold Plus Negative (Negative)
[2023-05-22 12:32] LABS: Hepatitis B Surface Antigen Negative
== END ==
PROVIDERS: PCP Emergency Medicine; Visit Provider Family Medicine
DX: F11.20 Opioid dependence, uncomplicated (principal)
CPT/HCPCS: 36415; 80053; 85025; 86480; 86593; 86703; 86706; 87340; 87522; G0432

== ENCOUNTER 2025-07-09 12:37 | Emergency (ER) | payer SELFPAY ==
[2025-07-09] VITALS (7 sets, daily range): BP systolic 106–140; BP diastolic 58–92; PULSE 73–99; RESP 15–18; TEMP 36.5–36.8; O2SAT 94–97; BMI 24.4
--- NOTE | 2025-07-09 12:38 | ECG_ITS ---
APPROVED REPORT Exam: Resting ECG HR:79 bpm ECG Measurements Heart Rate 79 AXES UT 232 P 74 QRSd 106 QRS 82 QT 363 T 47 QTc 398 Conclusion SINUS RHYTHM WITH FIRST DEGREE AV BLOCK ABNORMAL ECG Electronically signed by : KATINA MELENDEZ, 07/14/2025 07:12:24
--- NOTE | 2025-07-09 12:45 | CT_ITS ---
FINAL REPORT TECHNIQUE: Thin section axial images were obtained from skull base to vertex without contrast. Coronal reconstruction images were obtained from the axial data. Exam was performed using dose reduction techniques such as automated exposure control, adjustment of the mA and kV according to patient size, and use of iterative reconstruction technique. CLINICAL HISTORY: seizure pt denies hx of seizures FINDINGS: There is no mass effect or midline shift. There is no hydrocephalus. There is no intracranial hemorrhage. The posterior fossa is without acute abnormality. The basilar cisterns are preserved. The soft tissues are without acute abnormality. No acute osseous abnormality is identified. IMPRESSION: No acute intracranial abnormality. Reviewed, Interpreted and Dictated by Anna Michael MD Transcribed by Rivka Butterfield Authenticated and [facility]
--- NOTE | 2025-07-09 12:45 | HMH.EDGENADL ---
Discharge Plan Disposition Chief Complaint: Seizure Prescriptions Prescriptions: No Action buprenorphine-naloxone 8-2 mg film 1 film buccal DAILY diclofenac sodium 50 mg tablet,delayed release (DR/EC) 50 mg PO BID escitalopram oxalate [Lexapro] 10 mg tablet 20 mg PO DAILY escitalopram oxalate 20 mg tablet 20 mg PO DAILY Qty: 60 4RF quetiapine 50 mg tablet 50 mg PO DAILY Qty: 30 3RF quetiapine [Seroquel] 50 mg tablet 50 mg PO HS 30 Days Qty: 30 2RF Referrals Follow up/Referrals: Niko Jordan MD [Primary Care Provider, Family Practice] - See instructions Instructions Patient Instructions: DI for Seizure (Not Epilepsy/Seizure Disorder), DI for Seizure Disorder in Adults, DI for Seizure Disorder in Child Print Language Print Language: Kyrgyz Discharge ED Provider: Derick Sarabia Adult HPI General Chief complaint: Seizure Stated complaint: Seizure Time Seen by Provider: 07/09/25 12:43 History of Present Illness HPI narrative: This patient is a 45-year-old male with past medical history of 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 The patient reports that 2 months ago he had a similar episode of generalized full body shaking that lasted for 2 to 3 minutes followed by confusion. At that time they saw a doctor who gave them referral to neurology but they never attended the appointment. Today at work the patient had several intermittent episodes of hot flashes , shortly afterwards he had a 3-minute long episode of generalized full body shaking with foaming at the mouth. He did not lose control of bowel or bladder function. Afterwards he was confused and violent. On arrival to the emergency department he is calm, alert and oriented. He endorses severe headache, nausea, no other symptoms at this time. Related Data Home Medications ?Medication ?Instructions ?Recorded ?Confirmed buprenorphine 8 mg-naloxone 2 mg 1 film buccal DAILY 06/06/23 06/06/23 sublingual film diclofenac sodium 50 mg 50 mg PO BID 06/06/23 06/06/23 tablet,delayed release escitalopram oxalate 10 mg tablet 20 mg PO DAILY 06/06/23 06/06/23 (Lexapro) Previous Rx's ?Medication ?Instructions ?Recorded escitalopram oxalate 20 mg tablet 20 mg PO DAILY anxiety #60 tabs 06/06/23 quetiapine 50 mg tablet 50 mg PO DAILY #30 tabs 06/06/23 quetiapine 50 mg tablet (Seroquel) 50 mg PO HS 30 days #30 tabs 06/12/23 Allergies Allergy/AdvReac Type Severity Reaction Status Date / Time No Known Allergies Allergy Verified 06/06/23 08:21 [facility] Disclaimer: The information contained in this section may have been updated after the patient was seen, as this information can be updated by other users. Medical History Acute opioid withdrawal Hepatitis C No significant past medical history Overweight (BMI 25.0-29.9) Surgical History History of tonsillectomy Family History Father Colon cancer Social History Smoking Status: Never smoker alcohol intake: never substance use type: former substance user, opiates and painkillers current occupational status: employed and other Travel in the last 8 weeks?: None household members: family housing: house Have you lived/traveled outside [place] in past 30 days?: No Contact w/someone who lives/traveled outside [place] past 30 days?: No Exposure to someone with infectious disease in past 14 days?: No Do you have a fever (greater than 100.4 F or 38 C)?: No Have you tested positive for COVID-19?: No Exposed to someone with COVID-19 in past 14 days?: No Do you have a sore throat?: No Do you have a cough?: No Do you have any weakness?: No Do you have any diarrhea?: No Are you experiencing any unusual bleeding?: No Do you have any muscle aches/pain?: No Do you have any abdominal pain?: No Are you experiencing loss of taste or smell?: No Other Medical History Have you received the Flu Vaccine for this season: No Have you received the Pneumonia Vaccine: No ROS Obtained: Yes All systems reviewed & no additional complaints except as documented Physical Exam General General appearance: alert and in no apparent distress Head Head exam: atraumatic and normocephalic Eye Eye exam: Present normal appearance, PERRL and EOMI ENT ENT exam: Present normal exam and normal external ear exam Neck Neck exam: Present normal inspection, full ROM and trachea midline Chest Chest inspection: Present normal inspection and symmetric chest wall rise; Absent tenderness Respiratory Respiratory exam: Absent respiratory distress Cardiovascular Cardiovascular exam: Present regular rate, normal rhythm and other (appears warm and well perfused) Abdominal Exam Abdominal exam: Absent distention or tenderness exam: Absent deferred Extremities Exam Extremities exam: Present normal inspection and full ROM Neurological Exam Neurological exam: Present alert and oriented X3 Psychiatric Psychiatric exam: Present normal affect Skin Skin exam: Present warm and dry Medical Decision Making Medical Records Medical records reviewed: Yes I reviewed the patient's medical records. Screening: Per USPSTF and CDC recommendations, given the prevalence of disease in our region, it is our hospital?s policy to screen for HIV and viral Hepatitis for all patients aged 18 and over and those with ongoing risk factors. Jerod Inquiry Pt receiving controlled substance: No Jerod was queried for this patient: No Vital Signs: 07/09/25 12:31 07/09/25 12:48 07/09/25 13:15 Temperature 97.7 F Temperature Source Oral Pulse Rate 92 H Pulse Rate [Right] 81 Respiratory Rate 18 15 Blood Pressure 140/89 138/83 Blood Pressure [Right Arm] 140/89 Blood Pressure Mean [Right Arm] 106 02 Sat by Pulse Oximetry 95 97 Oxygen Delivery Method Room Air 07/09/25 13:30 07/09/25 14:00 07/09/25 14:30 Temperature Temperature Source Pulse Rate 99 H 83 79 Pulse Rate [Right] Respiratory Rate 15 18 16 Blood Pressure 121/58 L 106/59 L 121/69 Blood Pressure [Right Arm] Blood Pressure Mean [Right Arm] 02 Sat by Pulse Oximetry 95 95 95 Oxygen Delivery Method Lab Data Lab results reviewed: Yes I reviewed the patient's lab results. Lab Results 07/09/25 12:48: WBC 16.8 H, RBC 4.68, Hgb 14.8, Hct 43.8, MCV 93.6, MCH 31.6 H, MCHC 33.8, RDW 14.3, Plt Count 395, MPV 10.1, Neut % (Auto) 80.4 H, Lymph % (Auto) 14.0, [place] % (Auto) 3.9, Eos % (Auto) 0.7, Baso % (Auto) 0.6, Neut # (Auto) 13.5 H, Lymph # (Auto) 2.4, [place] # (Auto) 0.7, Eos # (Auto) 0.1, Baso # (Auto) 0.1, Sodium 132 L, Potassium 4.0, Chloride 99, Carbon Dioxide 20 L, Anion Gap 17.0 H, BUN 10, Creatinine 0.60 L, Estimated Creat Clear 183, Estimated GFR 147, Est GFR ( Amer) 178, Glucose 156 H, Calcium 9.3, Total Bilirubin 0.4, AST 37, ALT 47, Alkaline Phosphatase 104, Total Protein 8.1, Albumin 4.6, Globulin 3.5 H, Albumin/Globulin Ratio 1.3 07/09/25 13:00: Urine Color Yellow, Urine Appearance Clear, Urine pH 6.0, Ur Specific [place] 1.020, Urine Protein 1+ A, Urine Glucose (UA) Negative, Urine Ketones Negative, Urine Blood 1+ A, Urine Nitrate Negative, Urine Bilirubin Negative, Urine Urobilinogen 0.2, Ur Leukocyte Esterase Negative, Urine RBC 3-5, Urine WBC Occasional, Ur Squamous Epith Cells None, Urine Bacteria None, Urine Opiates Screen Negative, Urine Methadone Screen Negative, Ur Barbituates Screen Negative, Ur Phencyclidine Scrn Negative, Ur Amphetamines Screen Negative, U Benzodiazepines Scrn Negative, Urine Cocaine Screen Negative, U Marijuana (THC) Screen Positive H 07/09/25 13:04: SARS-CoV-2 (PCR) Not detected, Influenza A Untype (PCR) Not detected, Influenza Type B (PCR) Not detected 07/09/25 12:48 07/09/25 12:48 Orders (Tests/Meds): ED MEDICATIONS Discontinued Medications Generic Name Dose Route Start Last Admin Trade Name Eze PRN Reason Stop Dose Admin Diphenhydramine HCl 25 mg 07/09/25 12:47 07/09/25 13:10 Diphenhydramine 50mg/Ml Vial IV 07/09/25 12:48 25 mg ONCE ONE Administration Droperidol 2.5 mg 07/09/25 12:47 07/09/25 13:10 Droperidol 5mg/2ml Vial IV 07/09/25 12:48 2.5 mg ONCE ONE Administration Levetiracetam 2,000 mg/ Sodium 120 mls @ 240 mls/hr 07/09/25 12:45 11/05/25 13:50 Chloride IV 07/09/25 12:46 Infused ONCE ONE Infusion Midazolam HCl 5 mg 07/09/25 13:24 07/09/25 13:24 Midazolam 5mg/Ml 1ml Vial IV 07/09/25 13:25 5 mg ONCE ONE Administration ORDERS Category Date Time Status CT head/brain wo con Stat Cat Scan 07/09/25 12:45 Completed CBC w/Auto Diff [Complete Blood Count Auto Diff] Stat Lab 07/09/25 12:48 Completed CMP [Comprehensive Metabolic Panel] Stat Lab 07/09/25 12:48 Completed Lactate Venous Stat Lab 07/09/25 12:52 Ordered Rapid PCR Covid and Flu A/B Stat Lab 07/09/25 13:04 Completed UA [Urinalysis and Microscopic] Stat Lab 07/09/25 13:00 Completed UDS [Drug Screen,Urine] Stat Lab 07/09/25 13:00 Completed Medical Decision Narrative: MDM In summary, this 45-year-old male presents to the emergency department today with seizure. Initial evaluation the patient mildly uncomfortable but hemodynamically stable. Differential diagnosis includes but is not limited to brain mass, electrolyte abnormality, primary epilepsy, drug use. Based on these concerns, I ordered comprehensive laboratory imaging work. ECG personally interpreted by me demonstrates normal sinus. Patient received Bebo Gonsalves for treatment. Labs personally reviewed and interpreted demonstrate leukocytosis, no significant anemia, no major metabolic abnormalities, mild hyponatremia, urine positive for THC. CT imaging personally interpreted by me demonstrate no acute abnormalities, no obvious mass, no fracture. While in the emergency department the patient suffered from a second seizure, during the seizure his oxygen saturation dropped significantly and he required a jaw thrust to maintain saturation. Seizure was controlled with Versed. Given his recurrent seizures and drop in O2 saturation during seizure we were concerned about discharged home. I contacted the transfer center and spoke with the neurologist on-call who was comfortable excepting care of the patient. Transfer was initiated the patient was sent to the emergency [facility]. Critical Care Critical Care Time Critical Care Time: No
[2025-07-09 13:05] LABS: Microscopic, Urine URINE MICROSCOPIC (MICROSCOPIC)
[2025-07-09 13:07] LABS: Hematocrit 43.8 % (42.0-52.0); Hemoglobin 14.8 g/dL (14.1-18.0); Immature Granulocytes % 0.4 %; Mean Corpuscular HGB Conc 33.8 g/dL (31.8-35.4); Mean Corpuscular Hemoglobin 31.6 pg (27.0-31.2); Mean Corpuscular Volume 93.6 fl (80-94); Nucleated Red Blood Cells % 0 %; Platelet Count 395 K/mm3 (142-424); Red Blood Count 4.68 M/mm3 (4.60-6.20); Red Cell Distribution Width-SD 48.8 fL; White Blood Count 16.8 K/mm3 (4.8-10.8)
[2025-07-09 13:09] LABS: Coronavirus 19, PCR Not Detected (NotDetected); Influenza A, PCR Not Detected (NotDetected); Influenza B, PCR Not Detected (NotDetected)
[2025-07-09] MEDS: droPERidol 5MG/2ML VIAL 2.5 MG IV (13:10)
[2025-07-09 13:11] LABS: Alanine Aminotransferase 47 U/L (12-78); Albumin Level 4.6 g/dl (3.5-5.0); Albumin/Globulin Ratio 1.3 (1.1-1.8); Alkaline Phosphatase 104 U/L (38-126); Anion Gap 17.0 mEq/L (5-15); Aspartate Amino Transferase 37 U/L (17-59); Bilirubin,Total 0.4 mg/dl (0.2-1.3); Blood Urea Nitrogen 10 mg/dl (9-20); Calcium 9.3 mg/dl (8.4-10.2); Carbon Dioxide 20 mmol/L (22.0-30.0); Chloride 99 mmol/L (98-107); Creatinine Clearance Estimated 183 mL/min (50-200); Creatinine,Serum 0.60 mg/dl (0.66-1.25); Estimated Glomerular Filt Rate 147 ml/min (>60); GFR (African American) 178 ML/MIN (>60); Globulin 3.5 g/dL (1.3-3.2); Glucose 156 mg/dl (74-100); Potassium 4.0 mmoL/L (3.5-5.1); Sodium 132 mmol/L (136-145); Total Protein,Serum 8.1 g/dl (6.3-8.2)
[2025-07-09] MEDS: levETIRAcetam 2,000 MG in 0.9 % SODIUM CHLORIDE 100 ML 240 MG IV (13:11)
[2025-07-09 13:12] LABS: Bilirubin,Urine Negative (Negative); Color,Urine YELLOW (Yellow); Glucose,Urine (UA) Negative (Negative); Ketones,Urine Negative (Negative); Leukocyte Esterase,Urine Negative (Negative); PH,Urine 6.0 (5.0-8.5); Protein,Urine 1+ (Negative); Urobilinogen,Urine 0.2 EU/dl (0.2)
[2025-07-09 13:22] LABS: Specific Gravity, Urine 1.020 (1.005-1.030)
[2025-07-09 13:23] LABS: Amphetamine/Metha Screen,Urine Negative ng/ml (<1000)
[2025-07-09 13:24] LABS: Barbiturates Screen,Urine Negative ng/ml (<200); Benzodiazepines Screen,Urine Negative ng/ml (<200)
[2025-07-09] MEDS: MIDAZOLAM 5MG/ML 1ML VIAL 5 MG IV (13:24)
--- NOTE | 2025-07-09 13:25 | PC.NURSE ---
1317 Pt noted to have bilateral eye fluttering, and became tense. No JOSEPH called to bedside. Pt began to have tonic clonic shaking. Pt repositioned in bed. Lasted approx 3 minutes. 5mg IV versed was given per No JOSEPH order. Pt suctioned. Jaw thrust performed. Pt placed on NRB 15L
[2025-07-09 13:26] LABS: Methadone Screen,Urine Negative ng/ml (<300)
[2025-07-09 13:27] LABS: Phencyclidine Screen,Urine Negative ng/ml (<25)
[2025-07-09 13:28] LABS: Opiate Screen,Urine Negative ng/ml (<300)
--- NOTE | 2025-07-09 14:12 | PC.NURSE ---
Pt remains postictal at this time. Pt transitioned back to nasal cannula at 3L
[2025-07-09 14:18] LABS: WBC,Urine Occasional #/hpf (0-3)
--- NOTE | 2025-07-09 14:18 | PC.NURSE ---
1231 seizure pads applied to bed. suction in place and working. Call light within reach. Pt placed on monitor
--- NOTE | 2025-07-09 14:27 | PC.NURSE ---
Called [facility] per Dr Sarabia for transfer of this pt for a new onset of seizure activity. Pt will need a neurological workup and images were power shared. patched us thru and Dr Sarabia was speaking with Dara Javier at [facility] at this time
--- NOTE | 2025-07-09 14:34 | PC.NURSE ---
was speaking with Neurology and would call us back.
--- NOTE | 2025-07-09 15:38 | PC.NURSE ---
1535- report called to [facility]
--- NOTE | 2025-07-09 16:22 | PC.NURSE ---
Called EMS for transfer of this pt to [facility]
--- NOTE | 2025-07-09 16:39 | PC.NURSE ---
EMS arrives to transfer to , report given
== END 2025-07-09 16:43 | disposition other institution (70) ==
PROVIDERS: Emergency Provider Student in an Organized Health Care Education/Training Program; PCP Emergency Medicine
DX: R56.9 Unspecified convulsions (principal); R09.02 Hypoxemia; R51.9 Headache, unspecified; E87.1 Hypo-osmolality and hyponatremia; R11.0 Nausea; F11.11 Opioid abuse, in remission
CPT/HCPCS: 70450; 80053; 80307; 81001; 85025; 87636; 93005; 96374; 96375; 99285; J1200; J1790; J1953; J2250

== ENCOUNTER 2025-08-18 12:25 | Outpatient (CLI) | payer OTHER, SELFPAY ==
--- NOTE | 2025-08-18 12:29 | MR_ITS ---
FINAL REPORT TECHNIQUE: Multiplanar and multisequence imaging of the brain was obtained before and after contrast administration. CLINICAL HISTORY: SEIZURES COMPARISON: None FINDINGS: Brain parenchymal: There is no mass effect or midline shift. There are several very small foci of T2 signal in the periventricular and subcortical white matter, a finding of uncertain etiology or significance. No additional abnormal foci of signal are identified. The cerebellum and brainstem are without acute abnormality. Ventricles: The ventricles are symmetric in size and configuration without hydrocephalus. Extra-axial spaces: No extra-axial fluid collections. Diffusion imaging: No areas of restricted diffusion to suggest acute infarct. Flow voids: Flow voids within the major intracranial vessels are preserved. Soft tissues: There is a small amount of fluid present in the right mastoid air cells. Post contrast imaging: No abnormal enhancement. IMPRESSION: Several very small foci of T2 signal in the periventricular and subcortical white matter, a finding of uncertain etiology or significance. Small amount of fluid in the mastoid air cells on the right side. No abnormal enhancement is identified. Reviewed, Interpreted and Dictated by Anna Michael MD Transcribed by Katie Nazario Authenticated and . [facility]
--- NOTE | 2025-08-18 12:35 | XR_ITS ---
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 No radiopaque foreign body identified. IMPRESSION: No acute process. No metallic foreign body. Reviewed, Interpreted and Dictated by Shailesh Negro MD Transcribed by Susana Gaitan Authenticated and . [facility]
[2025-08-18] MEDS: GADOTERIDOL INJ 20ML SYRINGE 20 ML IV (14:26)
[2025-08-18] MEDS: SODIUM CHLORIDE 0.9% 10ML SYR (RAD ONLY) 10 ML IV (14:26)
== END 2025-08-18 23:59 | disposition home or self-care (01) ==
LOC: RAD 12:26
PROVIDERS: PCP Nurse Practitioner Family; Visit Provider Psychiatry & Neurology Neurology
DX: R90.82 White matter disease, unspecified (principal); R93.0 Abnormal findings on diagnostic imaging of skull and head, not elsewhere classified; R56.9 Unspecified convulsions; Z04.89 Encounter for examination and observation for other specified reasons
CPT/HCPCS: 70200; 70553; A9576